=== PATIENT | female | born 1950 | race Hispanic/Latino ===

== ENCOUNTER 2018-05-15 10:45 | Emergency (ER) | payer MEDICARE, OTHER ==
[2018-05-15] MEDS ORDERED: SODIUM CHLORIDE 0.9% 1000ML 1,000 ML IV ONE (11:41)
[2018-05-15] MEDS ORDERED: KETOROLAC TROMETHAMINE 15MG/ML ONE (11:41)
[2018-05-15 12:04] LABS: APPEARANCE,URINE Clear (CLEAR); BILIRUBIN,URINE Negative (NEGATIVE); COLOR,URINE Dark Yellow (YELLOW); GLUCOSE, URINE (UA) Negative (NEGATIVE); KETONES,URINE Trace mg/dL (NEGATIVE); LEUKOCYTE ESTERASE ,URINE Trace (NEGATIVE); NITRATE,URINE Negative (NEGATIVE); OCCULT BLOOD,URINE Negative (NEGATIVE); PH,URINE 5.5 (5.0-8.0); PROTEIN,URINE POS 2+ (NEGATIVE)
[2018-05-15] MEDS ORDERED: FUROSEMIDE 10 MG/ML 2ML VIAL ONE (12:04)
[2018-05-15] MEDS ORDERED: PREDNISONE 20 MG TABLET ONE (12:04)
[2018-05-15 12:36] LABS: BACTERIA,URINE Rare /HPF (None Seen); MUCUS,URINE Rare LPF (None Seen); RBC,URINE 0-1 /HPF (0-1); SQUAMOUS EPITHELIAL CELL,UR Moderate /HPF (0-2); WBC,URINE 0-1 /HPF (0-1)
== END 2018-05-15 13:23 | disposition home or self-care (01) ==
LOC: EDH 10:45
DX: J20.9 Acute bronchitis, unspecified (principal); R51 Headache; E87.70 Fluid overload, unspecified; I10 Essential (primary) hypertension
CPT/HCPCS: 71045; 81001; 87804 ×2; 94640; 96374; 96375; 99284; J1885; J1940; J7030; 96361

== ENCOUNTER 2023-01-26 08:04 | Emergency (ER) | payer MEDICARE, OTHER ==
[~2023-01-26] VITALS: Ht 152.4 cm; Wt 72.6 kg
[~2023-01-26 08:04] MED LIST: ASPI-1005 PO; BENZ-39 PO; HYDR25TA PO; LISI10TA24 PO; METO25 PO; OMEP20CA12 PO
[2023-01-26] MEDS ORDERED: ALBUTEROL 0.083% 2.5 MG/3 ML INH IH ONE ×2 (09:00→12:00)
[2023-01-26 09:05] LABS: HEMATOCRIT 40.5 % (36-48); MEAN CORPUSCULAR HEMOGLOBIN 30.8 pg (27.0-33.0); MEAN CORPUSCULAR HGB CONC 33.6 g/dL (32.0-36.0); MEAN CORPUSCULAR VOLUME 91.6 fL (79-99); RED BLOOD CELL COUNT(AUTO) 4.42 MIL/uL (4.00-5.50); RED CELL DISTRIBUTION WIDTH 12.5 % (11.0-15.5)
[2023-01-26 09:13] VITALS: PULSE 63; RESP 18
[2023-01-26 09:14] LABS: POTASSIUM 3.8 mmol/L (3.5-5.1)
[2023-01-26 09:49] LABS: COVID19 (SARS ANTIGEN RAPID) PRESUMPTIVE NEGATIVE (NEGATIVE); INFLUENZA TYPE A Negative For Type A (NEGATIVE); INFLUENZA TYPE B Negative For Type B (NEGATIVE)
[2023-01-26 11:49] VITALS: PULSE 69; RESP 18
[2023-01-26] MEDS ORDERED: BENZONATATE 100 MG CAPSULE PO ONE (12:00)
[2023-01-26] MEDS ORDERED: LIDOCAINE HCL 1% 20 ML VIAL INJ ONE (12:00)
[2023-01-26] MEDS ORDERED: CODE10LI PO (12:09)
[2023-01-26 12:11] VITALS: BP 136/63; PULSE 69; RESP 18; O2SAT 99
== END 2023-01-26 12:20 | disposition home or self-care (01) ==
LOC: EDH 08:04
DX: R05.9 Cough, unspecified (principal); I10 Essential (primary) hypertension; J45.909 Unspecified asthma, uncomplicated; Z79.82 Long term (current) use of aspirin; Z79.899 Other long term (current) drug therapy; Z20.822 Contact with and (suspected) exposure to COVID-19
CPT/HCPCS: 36415; 71045; 80048; 83735; 83880; 84484; 85027; 87426; 87804; 93005; 94640